=== PATIENT | male | born 1990 | race Caucasian/White ===

== ENCOUNTER 2021-12-11 15:41 | Emergency (ER) | payer SELFPAY ==
[2021-12-11] VITALS (17 sets, daily range): BP systolic 122–135; BP diastolic 70–84; PULSE 71–89; RESP 14–25; TEMP 36.6–36.8; O2SAT 97–100
--- NOTE | ~2021-12-11 | XR_ITS ---
EXAMINATION: XR chest 2V 12/11/2021 16:16 INDICATION: Heart racing PROCEDURE: 2 view chest COMPARISON: No prior studies for comparison. FINDINGS: The lungs are clear. The cardiomediastinal silhouette is within normal limits. There are no pleural effusions. There is no pneumothorax suspected. IMPRESSION: 1: NO ACUTE CARDIOPULMONARY DISEASE. Reviewed, dictated and finalized at location A.
--- NOTE | ~2021-12-11 | CT_ITS ---
EXAMINATION: CT BRAIN W/O DATE: 12/11/2021 17:47 INDICATION: Paresthesias TECHNIQUE: Computed tomography (CT) of the head was performed without intravenous contrast. The dose- length product was 605.33 mGy-cm. Automated exposure control and iterative reconstruction technique w ere employed. Unremarkable COMPARISON: No prior studies for comparison. FINDINGS: Normal brain parenchymal volume for age. Normal armenta-white differentiation. No acute intrac ranial hemorrhage, infarction, mass or mass effect. No ventriculomegaly or midline shift. Midline sagittal images demonstrate a normal corpus callosum, c raniovertebral junction and sella turcica. Basilar cisterns are patent. Paranasal sinuses and mastoids are pneumatized. No depressed skull fractures. IMPRESSION: 1. No acute intracranial abnormality. Reviewed, dictated and finalized at location A.
--- NOTE | 2021-12-11 15:56 | ECG_ITS ---
Measurements Intervals [place] Rate: 78 P: 68 OK: 165 QRS: 35 QRSD: 100 T: 22 QT: 359 QTc: 409 Interpretive Statements SINUS RHYTHM BASELINE ARTIFACT RSR' IN V1 OR V2, PROBABLY NORMAL VARIANT POSSIBLE LEFT ATRIAL ENLARGEMENT BORDERLINE ECG NO PREVIOUS ECG AVAILABLE FOR COMPARISON Electronically Signed On 12-12-2021 14:28:30 CDT by Yonis Boston M.D.
[2021-12-11 16:13] LABS: Basophils Percent Auto 0.2 % (0.2-1.2); Eosinophils Percent Auto 0.1 % (0-4.4); Hematocrit 39.9 % (42.0-52.0); Hemoglobin 13.8 g/dL (14.0-18.0); Immature Granulocyte Absolute 0.03 K/mm3 (0.00-0.031); Immature Granulocyte Percent A 0.3 % (0-0.5); Lymphocytes Absolute Auto 1.75 K/mm3 (0.9-3.2); Lymphocytes Percent Auto 17.1 % (18.3-44.2); Mean Corpuscular HGB Conc 34.6 g/dl (32-36); Mean Corpuscular Hemoglobin 30.1 pg (26-34); Mean Corpuscular Volume 86.9 fl (80-100); Mean Platelet Volume 9.1 fl (7.4-10.4); Monocytes Absolute Auto 0.7 K/mm3 (0.1-0.6); Monocytes Percent Auto 6.5 % (2.6-8.5); Neutrophils Absolute Auto 7.7 K/mm3 (1.3-6.7); Neutrophils Percent Auto 75.8 % (45.5-73.1); Platelet Count Result 209 k/mm3 (150-375); Red Blood Count 4.59 M/mm3 (4.6-6.20); Red Cell Distribution Width 12.8 % (11.5-14.5); White Blood Count 10.2 K/mm3 (4.5-10.0)
[2021-12-11 16:23] LABS: INR 1.1; Prothrombin Time 13.3 Seconds (11.1-14.7)
[2021-12-11 16:24] LABS: Alanine Aminotransferase 29 U/L (6-50); Albumin Level 4.9 g/dL (3.5-5.1); Alkaline Phosphatase 70 U/L (38-126); Anion Gap 12 mmol/L (8-16); Aspartate Amino Transferase 34 U/L (17-59); Bilirubin,Total 0.8 mg/dL (0.2-1.3); Blood Urea Nitrogen 16 mg/dL (9-20); Calcium 9.4 mg/dL (8.4-10.2); Carbon Dioxide 24 mmol/L (22-30); Chloride 100 mmol/L (98-107); Estimated CRCL calculation 80 ml/min; Estimated Glomerular Filt Rate > 60; Glucose 110 mg/dL (65-110); Lipase 100 U/L (23-300); Partial Thromboplastin Time 34.2 SECONDS (22.3-36.8); Potassium 3.7 mmol/L (3.4-5.0); Sodium 136 mmol/L (137-145)
[2021-12-11 16:37] LABS: Troponin I < 0.012 ng/mL (0.000-0.034)
--- NOTE | 2021-12-11 17:22 | ED.GENADULT ---
HPI - General Adult General Chief complaint: Unspecified Stated complaint: sob, feels like body is numb, has anxiety Time Seen by Provider: 12/11/21 17:03 Source: patient Mode of arrival: ambulatory Limitations: no limitations History of Present Illness HPI narrative: This is a 31 year old male that presents to the ER for paresthesias in the arms noted over the last couple of weeks. Also reports feeling of his throat closing, shortness of breath and chest pain. Denies fever, abdominal pain or vomiting. Related Data Allergies Allergy/AdvReac Type Severity Reaction Status Date / Time No Known Allergies Allergy Mild Verified 09/11/09 11:00 Review of Systems Review of Systems: CONSTITUTIONAL: Denies fever CARDIOVASCULAR: Reports chest pain, palpitations. Denies edema. RESPIRATORY: Reports dyspnea. GASTROINTESTINAL: Denies abdominal pain, nausea, vomiting NEUROLOGIC: Denies headache, numbness, or weakness. PSYCHIATRIC: Reports anxiety All systems reviewed & are unremarkable except as noted in HPI and below PMFSH Past Medical History Medical History (Updated 12/11/21 @ 20:06 by Billie Bales PA-C) History of anxiety Social History Social History (Updated 12/11/21 @ 17:24 by Billie Bales PA-C) Smoking status: Never smoker Alcohol intake: current Substance use: current Substance use type: marijuana Exam Narrative: GENERAL: Well-appearing, well-nourished, and in no acute distress. HEAD: Normocephalic, atraumatic. EYES: PERRLA and EOMI. ENT: Nares clear, no rhinorrhea or epistaxis. Mucous membranes moist. Oropharynx without tonsillar hypertrophy exudate or other lesions. Bilateral TMs pearly armenta non-bulging NECK: Supple. No adenopathy or masses. CHEST: Clear to auscultation. No respiratory distress. No wheezes rales or rhonchi HEART: Regular rate and rhythm. No murmur heard. Normal peripheral pulses. EXTREMITIES: Normal range of motion. No edema. Strength equal in bilateral upper and lower extremities (5/5) SKIN: Warm, dry, no rash. NEURO: No focal deficits. Alert and oriented x3. Cranial nerves II through XII grossly intact. Normal gait PSYCH: Normal mood and affect Course Vital Signs Vital signs: Vital Signs Temperature 97.8 F 12/11/21 15:46 Pulse Rate 76 12/11/21 15:46 Respiratory Rate 18 12/11/21 15:46 Blood Pressure 134/83 12/11/21 15:46 Pulse Oximetry 100 12/11/21 15:46 Oxygen Delivery Room Air 12/11/21 15:46 Temperature 97.8 F 12/11/21 15:46 Pulse Rate 76 12/11/21 17:31 Respiratory Rate 16 12/11/21 17:31 Blood Pressure 130/82 12/11/21 17:31 Pulse Oximetry 97 12/11/21 17:31 Oxygen Delivery Room Air 12/11/21 15:46 Medical Decision Making MDM Narrative Medical decision making narrative: Patient presents to the emergency department for symptoms ongoing over the last couple of weeks. Reporting paresthesias throughout his entire body. Associated with anxiety. Patient is neurologically intact. His vitals are normal. No concerning findings on CBC and metabolic panel. EKG without acute changes and baseline troponin is negative. Chest x-ray without acute cardiopulmonary abnormality. CT scan of the brain without acute findings. TSH is normal. Patient and family updated on case findings. He does appear very anxious, but will not take any anxiety medication at this time. Patient and family updated on case findings. Instructed he should have close follow-up with a primary doctor. Will also be given neurology for follow-up for his feelings of paresthesias. He was given warnings to return to the ER Vital Signs Vital Signs: Vital Signs Temperature 97.8 F 12/11/21 15:46 Pulse Rate 76 12/11/21 15:46 Respiratory Rate 18 12/11/21 15:46 Blood Pressure 134/83 12/11/21 15:46 Pulse Oximetry 100 12/11/21 15:46 Oxygen Delivery Room Air 12/11/21 15:46 Temperature 97.8 F 12/11/21 15:46 Pulse Rate 76 12/11/21 17:31 Respirato
[2021-12-11 17:25] LABS: Appearance Urine Clear (Clear); Bilirubin Urine Negative (Negative); Blood Urine Negative (Negative); Glucose Urine UA Negative (Negative); Ketones Urine Negative (Negative); Leukocyte Esterase Ur Negative LEU/UL (Negative); Nitrate Urine Negative (Negative); Protein Urine Negative (Negative); Urobilinogen Urine 0.2 mg/dL (<2.0)
[2021-12-11 17:27] LABS: Add Urine Microscopic? NO; Color Urine Light Yellow (Yellow)
[2021-12-11 17:38] LABS: Amphetamine Screen Urine Negative (Negative); Barbiturate Screen Urine Negative (Negative); Benzodiazepines Screen Urine Negative (Negative); Cannabinoid Screen Urine Positive (Negative); Cocaine Screen Urine Negative (Negative); Methadone Screen Urine Negative (Negative); Opiate Screen Urine Negative (Negative); Phencyclidine Screen Urine Negative (Negative)
[2021-12-11 18:43] LABS: Ethanol < 10 mg/dL (<10)
[2021-12-11 19:43] LABS: Troponin I < 0.012 ng/mL (0.000-0.034)
[2021-12-11] MEDS: LORazepam (*CRX) 0.5 MG TABLET PO (20:47)
== END 2021-12-11 21:59 | disposition home or self-care (01) ==
PROVIDERS: Physician Assistant; Emergency Provider Emergency Medicine
DX: R20.2 Paresthesia of skin (principal); R94.31 Abnormal electrocardiogram [ECG] [EKG]; F41.9 Anxiety disorder, unspecified
CPT/HCPCS: 36415; 70450; 71046; 80053; 80307; 81003; 83690; 84443; 84484; 85025; 85610; 85730; 93005; 99284; A9270

== ENCOUNTER 2022-03-20 11:42 | Emergency (ER) | payer OTHER, SELFPAY ==
--- NOTE | ~2022-03-20 | XR_ITS ---
EXAMINATION: XR chest 1V portable Exam Date/Time: 03/20/2022 14:13 POOL HALL INSPECTOR HISTORY: L side CP, dizziness, L side gynecomastia Comparison: 12/11/2021. RESULT: Lines, tubes, and devices: None. Lungs and pleura: Clear. Cardiomediastinal silhouette: Stable. Other: No acute osseous or upper abdominal finding. IMPRESSION: No acute cardiopulmonary process. Reviewed, dictated and finalized at location K. HALL INSPECTOR
--- NOTE | 2022-03-20 11:43 | ECG_ITS ---
Measurements Intervals [place] Rate: 75 P: 73 MA: 175 QRS: 54 QRSD: 100 T: 50 QT: 357 QTc: 401 Interpretive Statements SINUS RHYTHM NORMAL ECG COMPARED TO ECG 12/11/2021 16:02:07 NO SIGNIFICANT CHANGES Electronically Signed On 03-20-2022 16:59:50 [employer]BILE ENGINEER by Bigg Grant D.O.
[2022-03-20 12:22] VITALS: BP 142/79; PULSE 78; RESP 14; TEMP 36.4; O2SAT 99
--- NOTE | 2022-03-20 13:24 | ED.CHESTPAIN ---
HPI - Chest Pain General Chief Complaint: Chest Pain Stated Complaint: chest pain X2 days Time Seen by Provider: 03/20/22 13:15 History of Present Illness HPI narrative: 31-year-old male with past medical history of anxiety presents to our department for evaluation of a reproducible left chest pain which is felt along rib #4 in both the anterior and posterior segments. Onset was 24 hours ago when pain worsens with movement and pushing on the rib. No difficulty breathing, fever. Related Data Allergies Allergy/AdvReac Type Severity Reaction Status Date / Time No Known Allergies Allergy Mild Verified 09/11/09 11:00 Review of Systems Review of Systems: CONSTITUTIONAL: Denies fever, chills, or sweats. EYES: Denies visual changes, redness, or discharge. ENT: Denies rhinorrhea, congestion, sore throat, or otalgia. CARDIOVASCULAR: Denies chest pain, palpitations, or edema. RESPIRATORY: Denies cough or dyspnea. GASTROINTESTINAL: Denies abdominal pain, nausea, vomiting, or diarrhea. GENITOURINARY: Denies dysuria or hematuria. SKIN: Denies rash or itching. MUSCULOSKELETAL: Denies back pain, joint pain, or myalgia. NEUROLOGIC: Denies headache, numbness, or weakness. PSYCHIATRIC: Denies anxiety or depression. [facility] Past Medical History Medical History (Updated 03/20/22 @ 14:49 by Alan Duncan DO) History of anxiety Social History Social History (Updated 12/11/21 @ 17:24 by Billie Bales PA-C) Smoking status: Never smoker Alcohol intake: current Substance use: current Substance use type: marijuana Exam Narrative: GENERAL: Well-appearing, well-nourished, and in no acute distress. HEAD: Normocephalic, atraumatic. EYES: PERRLA and EOMI. ENT: Nares clear, no rhinorrhea or epistaxis. Mucous membranes moist. NECK: Supple. CHEST: Clear to auscultation. No respiratory distress. Palpable discomfort along rib #4 on the left side HEART: Regular rate and rhythm. No murmur heard. Normal peripheral pulses. ABDOMEN: Soft, nontender, nondistended, normal active bowel sounds. EXTREMITIES: Normal range of motion. No edema. SKIN: Warm, dry, no rash. NEURO: No focal deficits. Alert and oriented x3. PSYCH: Normal mood and affect. Course Vital Signs Vital signs: Vital Signs Temperature 97.6 F 03/20/22 12:22 Pulse Rate 78 03/20/22 12:22 Respiratory Rate 14 03/20/22 12:22 Blood Pressure 142/79 H 03/20/22 12:22 Pulse Oximetry 99 03/20/22 12:22 Oxygen Delivery Room Air 03/20/22 12:22 Temperature 97.6 F 03/20/22 12:22 Pulse Rate 78 03/20/22 12:22 Respiratory Rate 14 03/20/22 12:22 Blood Pressure 142/79 H 03/20/22 12:22 Pulse Oximetry 99 03/20/22 12:22 Oxygen Delivery Room Air 03/20/22 12:22 MDM - Chest Pain MDM Narrative Medical decision making narrative: 31-year-old male presents with reproducible left-sided chest pain along rib #4. Physical exam with an exhaled rib #4 on the left. Patient will take NSAIDs and visit a chiropractor. I do not suspect cardiac etiology. I do not suspect pulmonary etiology. I do not suspect vascular etiology of patient's symptoms. There is no exertional component or shortness of breath. Discharge Plan Discharge Clinical Impression: Anxiety, Atypical chest pain, Costalchondritis Patient Disposition: Home, Self-Care Condition: Stable Instructions: Antibiotic Form, Costochondritis (ED) Additional Instructions: Please take ibuprofen and use the foam over as we discussed. Return to the ER if your pain is worsening or if you have any concerns about your health. Prescriptions: No Action lorazepam 0.5 mg tablet 0.5 mg PO BID PRN (Reason: anxiety) Qty: 10 0RF Follow-up/Referrals: PHYSICIAN,PROFESSOR OF FINE ART [Primary Care Provider] - Time of Disposition: 14:48
== END 2022-03-20 15:24 | disposition home or self-care (01) ==
PROVIDERS: Emergency Provider Emergency Medicine
DX: M94.0 Chondrocostal junction syndrome [Tietze] (principal); F41.9 Anxiety disorder, unspecified; R07.89 Other chest pain
CPT/HCPCS: 71045; 93005; 99283